=== PATIENT | female | born 1990 | race African-American/Black ===

== ENCOUNTER 2016-07-09 10:29 | Inpatient (IN) | payer OTHER ==
[~2016-07-09] VITALS: Ht 160 cm; Wt 53.9 kg
[~2016-07-09 10:29] MED LIST: FAMO-18 PO; PRENAT PO; TYL500 PO
[2016-07-09] MEDS ORDERED: OXYTOCIN 30 UNITS/LR 500 ML IV SCH ×2 (11:30)
[2016-07-09] MEDS ORDERED: LACTATED RINGER'S 1,000 ML IV PRN (11:30)
[2016-07-09] MEDS ORDERED: LIDOCAINE 1% (MPF) 30 ML INJ INJ PRN (11:30)
[2016-07-09] MEDS ORDERED: CARBOPROST 250 MCG INJ IM PRN ×2 (11:30→21:30)
[2016-07-09] MEDS ORDERED: AMPICILLIN 2 GM/NS (PMX) 100 ML IV ONE (11:30)
[2016-07-09] MEDS ORDERED: OXYTOCIN 30 UNITS/LR 500 ML IV PRN ×2 (11:30→21:30)
[2016-07-09] MEDS ORDERED: METHYLERGONOVINE 0.2 MG INJ IM PRN ×2 (11:30→21:30)
[2016-07-09] MEDS ORDERED: BUTORPHANOL 2 MG INJ IV PRN ×2 (11:30)
[2016-07-09] MEDS ORDERED: LACTATED RINGER'S 1,000 ML IV SCH (11:30)
[2016-07-09] MEDS ORDERED: MISOPROSTOL 200 MCG TAB PR PRN ×2 (11:30→21:30)
[2016-07-09 12:29] LABS: BASOPHILS % 0.4 % (0.0-2.0); EOSINOPHILS % 0.4 % (0.0-7.0); HEMATOCRIT 36.9 % (37.0-47.0); HEMOGLOBIN 12.7 g/dl (12.0-16.0); LYMPHOCYTES % 27.2 % (15.0-51.0); MEAN CORPUSCULAR HEMOGLOBIN 31.2 pg (29.0-33.0); MEAN CORPUSCULAR HGB CONC 34.4 g/dl (32.0-37.0); MEAN CORPUSCULAR VOLUME 90.8 fl (82.0-101.0); MEAN PLATELET VOLUME 10.1 fl (7.4-10.4); MONOCYTE # 0.6 10^3/ul (0.3-0.9); MONOCYTES % 8.5 % (0.0-11.0); NEUTROPHIL # 4.7 10^3/ul (1.6-7.5); NEUTROPHILS % 63.5 % (39.0-77.0); PLATELET COUNT 211 10^3/UL (140-440); RED BLOOD COUNT 4.07 10^6/ul (4.20-5.40); RED CELL DISTRIBUTION WIDTH 13.6 % (11.5-14.5); UNCORRECTED WBC 7.4 10^3/ul (4.8-10.8); WHITE BLOOD COUNT 7.4 10^3/ul (4.8-10.8)
[2016-07-09 12:31] LABS: CONDITION 1
[2016-07-09 12:38] LABS: INR 0.93; PROTIME 12.5 Sec (12.2-14.2)
[2016-07-09] MEDS ORDERED: FENTAnyl 2MCG/ML-ROPIV 0.2% 100 ML ONE (14:23)
[2016-07-09] MEDS ORDERED: NALOXONE (0.4 MG/ML) INJ IV PRN (15:00)
[2016-07-09] MEDS ORDERED: FENTAnyl 2MCG/ML-ROPIV 0.2% 100 ML BAG EPI SCH (15:00)
[2016-07-09] MEDS ORDERED: AMPICILLIN 1 GM/NS (PMX) 50 ML IV SCH (15:30)
[2016-07-09 18:49] VITALS: Ht 160 cm; Wt 53.9 kg
[2016-07-09 18:50] VITALS: BP 118/78; PULSE 78; RESP 18
[2016-07-09] MEDS ORDERED: WITCH HAZEL/GLYCERIN PAD PR PRN (21:30)
[2016-07-09] MEDS ORDERED: SENNA/DOCUSATE NA (8.6MG/50MG) TAB PO PRN (21:30)
[2016-07-09] MEDS ORDERED: DIBUCAINE 1% 30 GM OINT PR PRN (21:30)
[2016-07-09] MEDS ORDERED: LANOLIN 7 GM TUBE TOP PRN (21:30)
[2016-07-09] MEDS ORDERED: BENZOCAINE 20% 56 ML SPRAY TOP PRN (21:30)
[2016-07-09] MEDS ORDERED: ONDANSETRON 4 MG INJ IV PRN (21:30)
--- NOTE | 2016-07-09 21:42 | HP ---
Date/Time of Note Date/Time of Note DATE: 07/09/16 TIME: 21:34 OB - History Hx of Present Free Text/Dictation 26 Year-old with SIUP at 39 3/7 wks adm presents with a chief complaint of uterine contractions. She has been receiving her care with Dr Mooney. She states good movement. She denies nausea, vomiting, shortness of breath, chest pain, and abdominal pain between contractions, headache, visual changes, vaginal bleeding or LOF. Chief Complaint: UCS Last Menstrual Period: Nov 02, 2015 Estimated Due Date: Jul 13, 2016 : 4 Para: 3 Spontaneous : 0 Therapeutic : 0 Care: Good Care Ultrasounds: Normal mid trimester US Obstetrical Complications: None Medical Complications: None Past Family/Social History * Past Medical, Surgical, Family and Obstetric Histories reviewed from chart. Blood Type: A+ Rubella: immune RPR/VDRL: Negative GBS Status: Positive HBsAG: Negative OB Admission Exam Vital Signs Vital Signs Vital Signs Date Time Temp Pulse Resp B/P Pulse Ox O2 Delivery O2 Flow Rate FiO2 07/09/16 18:50 97.7 78 18 118/78 Room Air Physical Exam HEENT: WNL Heart: Rhythm Normal Lungs: Clear Abdomen: WNL Extremities: Normal Cervical Dilatation: 4cm Effacement: 50% Station: -3 Membranes: Intact Heart Rate: 140's Accelerations: Accelerations Present Decelerations: No Decelerations Varibility: Moderate Intensity: Moderate Last 72 hours Lab Results CBC & BMP 07/09/16 12:03 OB Assessment/Plan Other plan: 26 Year-old with SIUP at 39 3/7 wks admitted in labor - FHR: No sign of metabolic acidosis- Category I - Continious EFM, toco - CBC, blood type and screen - Analgesia options with R/B/A discussed in detail with patient - Epidural per patient request - Please see the orders - A+/RI/GBS positive, ampicillin ordered by MEET Markham Jul 09, 2016 21:42
--- NOTE | 2016-07-09 21:45 | LDN ---
Date/Time of Note Date/Time of Note DATE: 07/09/16 TIME: 21:42 Delivery Summary 26 y/o at 39 3/y wks delivered a female over intact perineum. : 9 and 9. Weight: 8 lbs 1 oz. Time of delivery: 19:57 Placenta Delivered: Spontaneously Perineum intact?: Yes Anesthesia type: Epidural Estimated blood loss: 200 Sponge & Needle done & correct: Yes All needle counts correct: Yes Any foreign bodies felt in the: No Problems: Delivery Information Sex Infant Sex: female Apgars 1 Minute: 9 5 Minute: 9 10 Minute: 10 Suctioning Nose & mouth suctioned at imani: Yes Umbilical Cord Umbilical cord with: 3 Vessels Cord Blood was obtained: Yes MEET DUENAS Jul 09, 2016 21:45
[2016-07-09 22:15] VITALS: BP 132/80; PULSE 60; RESP 18
[2016-07-09 22:45] VITALS: BP 128/65; PULSE 60; RESP 18
[2016-07-09] MEDS: IBUPROFEN 600 MG TAB PO SCH (23:43)
[2016-07-10] VITALS: BP 127/68; PULSE 61; RESP 18
[2016-07-10] MEDS: HYDROCODONE/APAP (5/325) TAB PO PRN ×3 (01:05→19:34)
[2016-07-10] MEDS: LACTATED RINGER'S 1,000 ML IV* SCH ×4 (03:57→21:11)
[2016-07-10 04:05] VITALS: BP 121/74; PULSE 58; RESP 18
[2016-07-10] MEDS: IBUPROFEN 600 MG TAB PO SCH ×3 (05:57→17:47)
[2016-07-10 07:45] VITALS: BP 127/75; PULSE 60; RESP 18
[2016-07-10 08:36] LABS: BASOPHILS % 0.3 % (0.0-2.0); EOSINOPHILS % 0.4 % (0.0-7.0); HEMATOCRIT 34.6 % (37.0-47.0); HEMOGLOBIN 11.6 g/dl (12.0-16.0); LYMPHOCYTES # 2.2 10^3/ul (0.8-2.9); LYMPHOCYTES % 19.8 % (15.0-51.0); MEAN CORPUSCULAR HEMOGLOBIN 30.8 pg (29.0-33.0); MEAN CORPUSCULAR HGB CONC 33.4 g/dl (32.0-37.0); MEAN CORPUSCULAR VOLUME 92.1 fl (82.0-101.0); MEAN PLATELET VOLUME 9.7 fl (7.4-10.4); MONOCYTE # 1.3 10^3/ul (0.3-0.9); MONOCYTES % 11.2 % (0.0-11.0); NEUTROPHIL # 7.6 10^3/ul (1.6-7.5); NEUTROPHILS % 68.3 % (39.0-77.0); PLATELET COUNT 211 10^3/UL (140-440); RED BLOOD COUNT 3.76 10^6/ul (4.20-5.40); RED CELL DISTRIBUTION WIDTH 13.6 % (11.5-14.5); UNCORRECTED WBC 11.2 10^3/ul (4.8-10.8); WHITE BLOOD COUNT 11.2 10^3/ul (4.8-10.8)
[2016-07-10 08:56] LABS: CONDITION 1
--- NOTE | 2016-07-10 13:56 | PN ---
Date/Time of Note Date/Time of Note DATE: 07/10/16 TIME: 13:55 OB Subjective Subjective Subjective day 1 Afebrile vital sign a stable, abdomen soft, uterus firm, lochia normal, stringently normal Laboratory Tests Test 07/10/16 08:09 Basophils # 0.010^3/ul Basophils % 0.3% Eosinophils # 0.010^3/ul Eosinophils % 0.4% Hematocrit 34.6% Hemoglobin 11.6g/dl Lymphocytes # 2.210^3/ul Lymphocytes % 19.8% Mean Corpuscular Hemoglobin 30.8pg Mean Corpuscular Hemoglobin Concent 33.4g/dl Mean Corpuscular Volume 92.1fl Mean Platelet Volume 9.7fl Monocytes # 1.310^3/ul Monocytes % 11.2% Neutrophils # 7.610^3/ul Neutrophils % 68.3% Nucleated Red Blood Cells # 0.010^3/ul Nucleated Red Blood Cells % 0.0/100WBC Platelet Count 99465^3/UL Red Blood Count 3.7610^6/ul Red Cell Distribution Width 13.6% White Blood Count 11.210^3/ul Current Medications Medications (Trade) Dose Ordered Sig/Yuki Route PRN Reason Start Time Stop Time Status Last Admin Dose Admin Lactated Ringer's 1,000 ml @ 125 mls/hr Q8H IV 07/09/16 11:30 07/09/16 23:06 DC 07/09/16 12:58 Ampicillin 100 ml @ 100 mls/hr ONCE ONCE IV 07/09/16 11:30 07/09/16 12:29 DC 07/09/16 12:59 Ampicillin (Ampicillin 1 Gm/ NS (Pmx)) 50 ml @ 100 mls/hr Q4H IV 07/09/16 15:30 07/09/16 23:06 DC 07/09/16 17:11 Butorphanol Tartrate (Stadol) 1 mg Q2H PRN IV PAIN 07/09/16 11:30 07/09/16 23:06 DC Butorphanol Tartrate (Stadol) 2 mg Q2H PRN IV PAIN 07/09/16 11:30 07/09/16 23:06 DC Lidocaine 30 ml 30 ml ONCE PRN INJ EPISIOTOMY/TEARING 07/09/16 11:30 07/09/16 23:06 DC Oxytocin/Lactated Ringer's 500 ml @ 125 mls/hr ONCE -MAY REPEAT X1 IV 07/09/16 11:30 07/09/16 22:47 Oxytocin/Lactated Ringer's 500 ml @ 125 mls/hr ONCE IV 07/09/16 11:30 07/09/16 23:06 DC Lactated Ringer's 1,000 ml @ 2,000 mls/hr Q30M PRN IV PRE-EPIDURAL BOLUS 07/09/16 11:30 07/09/16 23:06 DC 07/09/16 14:53 Oxytocin/Lactated Ringer's 500 ml @ 0 mls/hr ONCE PRN IV For Hemorrhage Management 07/09/16 11:30 07/09/16 23:06 DC Methylergonovine Maleate (Methergine) 0.2 mg ONCE PRN IM VAGINAL BLEEDING 07/09/16 11:30 07/09/16 23:06 DC Carboprost Tromethamine (Hemabate) 250 mcg ONCE PRN IM VAGINAL BLEEDING 07/09/16 11:30 07/09/16 23:06 DC Misoprostol 1000 mcg 1,000 mcg ONCE PRN IL VAGINAL BLEEDING 07/09/16 11:30 07/09/16 23:06 DC Fentanyl/ Ropivacaine 100 ml @ ud STK-MED ONCE .ROUTE 07/09/16 14:23 07/09/16 14:24 DC Naloxone HCl (Narcan) 0.1 mg Q2M PRN IV FOR RESP RATE 8 OR LESS 07/09/16 15:00 07/09/16 23:06 DC Fentanyl/ Ropivacaine 100 ml 100 ml EPIDURAL INFUSION EPI 07/09/16 15:00 07/09/16 23:06 DC Lactated Ringer's (Lr) 1,000 ml @ 125 mls/hr Q8H IV* 07/09/16 21:11 07/10/16 03:57 Ibuprofen (Motrin) 600 mg Q6 PO 07/10/16 00:00 07/10/16 05:57 Ondansetron HCl (Zofran Inj) 4 mg Q6H PRN IV NAUSEA AND/OR VOMITING 07/09/16 21:30 Senna/Docusate Sodium (Senokot-S) 1 tab BID PRN PO CONSTIPATION 07/09/16 21:30 Witch Preeti/ Glycerin (Tucks Pads) 1 pad BEDSIDE MEDICATION PRN IL HEMORRHOID/EPISIOTMY PAIN 07/09/16 21:30 07/09/16 23:44 Benzocaine (Dermoplast [place]) 1 spray BEDSIDE MEDICATION PRN TOP HEMORRHOID/EPISIOTMY PAIN 07/09/16 21:30 07/09/16 23:44 Dibucaine (Nupercainal) 1 applic BEDSIDE MEDICATION PRN IL HEMORRHOID/EPISIOTMY PAIN 07/09/16 21:30 Lanolin 1 applic 1 applic BEDSIDE MEDICATION PRN TOP BEDSIDE FOR RICARDO TO NIPPLES 07/09/16 21:30 07/09/16 23:44 Oxytocin/Lactated Ringer's 500 ml @ 0 mls/hr ONCE PRN IV For Hemorrhage Management 07/09/16 21:30 Methylergonovine Maleate (Methergine) 0.2 mg ONCE PRN IM VAGINAL BLEEDING 07/09/16 21:30 Carboprost Tromethamine (Hemabate) 250 mcg ONCE PRN IM VAGINAL BLEEDING 07/09/16 21:30 Misoprostol (Cytotec) 1,000 mcg ONCE PRN IL VAGINAL BLEEDING 07/09/16 21:30 Acetaminophen/ Hydrocodone Bitart (Neche (5/325)) 1 tab Q6H PRN PO pain 07/10/16 01:00 07/10/16 11:50 JEAN MARIE NANCE MD Jul 10, 2016 13:56
[2016-07-10 16:00] VITALS: BP 114/83; RESP 16
[2016-07-10 20:00] VITALS: BP 140/85; PULSE 56; RESP 18
[2016-07-11] MEDS: IBUPROFEN 600 MG TAB PO SCH ×3 (00:16→12:37)
[2016-07-11 04:25] VITALS: BP 126/62; PULSE 56; RESP 16
[2016-07-11] MEDS: LACTATED RINGER'S 1,000 ML IV* SCH (05:11)
[2016-07-11 08:25] VITALS: BP 122/65; PULSE 55; RESP 17
[2016-07-11] MEDS: HYDROCODONE/APAP (5/325) TAB PO PRN (10:23)
[2016-07-11] MEDS ORDERED: VARICELLA VACCINE LIVE/PF 1,350 UNIT/0.5 ML ML SC* ONE ×2 (11:00→14:00)
[2016-07-11] MEDS ORDERED: DIPHTH/TET/ACEL PERTUSS (ADULT) 0.5 ML VIAL IM* ONE ×2 (11:00→14:00)
--- NOTE | 2016-07-11 13:16 | PD.PPDC ---
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
--- NOTE | 2016-07-11 13:19 | DS ---
Date/Time of Note Date/Time of Note DATE: 07/11/16 TIME: 13:17 Obstetrical Discharge Record Final Diagnosis Final Diagnosis: Term delivered Vaginal Delivery Obstetrical Delivery: Spontaneous Condition on Discharge Physical Assessment Last Vitals: Vital sign stable abdomen soft uterus firm lochia normal extremity normal instructions given ,advised to make appointment in 2 weeks for check Voiding: Yes Bowel Movement: Yes Breast: Soft, non-tender, Filling Fundus: Firm Calf Tenderness: No Patient Condition: Good JEAN MARIE NANCE MD Jul 11, 2016 13:19
== END 2016-07-11 15:23 | disposition home or self-care (01) | DRG 775 ==
LOC: L-D 10:29 → OBT 10:29 → L-D 11:26 → PP1 23:09
PROVIDERS: ADMIT Obstetrics & Gynecology; ATTEND Obstetrics & Gynecology
PROC: 10E0XZZ Delivery of Products of Conception, External Approach (ICD-10-PCS; principal; 2016-07-09)
PROC: 4A1HX4Z Monitoring of Products of Conception, Cardiac Electrical Activity, External Approach (ICD-10-PCS; 2016-07-09)
DX: O80 Encounter for full-term uncomplicated delivery (principal); Z37.0 Single live birth; Z3A.39 39 weeks gestation of pregnancy
CPT/HCPCS: 62319; 85025; 85610; 85730; 86592; 86900; 86901; 87340; 90715; 90716; 99464; G0463; J0290; J2590; J3010; J7120